=== PATIENT | male | born 1955 | race American Indian/Alaskan Native ===

== ENCOUNTER 2021-10-07 06:46 | Day surgery (SDC) | payer OTHER ==
[2021-10-06 11:16] LABS: Hematocrit 42.2 % (35.5-45.6); Hemoglobin 13.8 gm/dl (11.8-15.2); Mean Corpuscular HGB Conc 33 % (32-34); Mean Corpuscular Volume 85 fl (84-94); Platelet Count 183 K/mm3 (140-440); Red Blood Count 4.96 M/mm3 (3.65-5.03); Red Cell Distribution Width 14.4 % (13.2-15.2)
[2021-10-06 11:27] LABS: Alanine Aminotransferase 14 units/L (7-56); Albumin 4.1 g/dL (3.9-5); BUN/Creatinine Ratio 15; Blood Urea Nitrogen 15 mg/dL (9-20); Calcium 9.3 mg/dL (8.4-10.2); Hemolysis Index 2
[~2021-10-07 06:46] MED LIST: LACTATED RINGERS 1,000 ML IV SCH; MIDAZOLAM 2 MG/2 ML INJ IV NR
--- NOTE | 2021-10-07 07:25 | Anesthesia Consultation ---
Anesthesia Consult and Med Hx Date of service: 10/07/21 - Airway Anesthetic Teeth Evaluation: Poor (multiple missing teeth in the back, brokentooth upper left back) ROM Head & Neck: Adequate Mental/Hyoid Distance: Adequate Mallampati Class: Class II Intubation Access Assessment: Probably Good - Pre-Operative Health Status ASA Pre-Surgery Classification: ASA2 Proposed Anesthetic Plan: General - Pulmonary Hx Smoking: Yes (STOPPED 2012 , NOW ONLY VAPS) Hx Sleep Apnea: No (KIN PRE SCREEN LOW RISK) - Cardiovascular System Hx Hypertension: No Hx Coronary Artery Disease: No (elevated cholesterol, no meds) - Central Nervous System Hx Back Pain: Yes Hx Psychiatric Problems: Yes (PTSD/Depression) - Endocrine Hx Renal Disease: No (elevated PSA) - Hematic Hx Anemia: No - Other Systems Hx Alcohol Use: Yes (HX ABUSE- CLEAN X 32 YRS) Hx Substance Use: Yes (HX MULTIPLE DRUG ABUSE- CLEAN X 32 YRS) Hx Cancer: No
--- NOTE | 2021-10-07 07:25 | Anesthesia Day of Surgery ---
Anesthesia Day of Surgery - Day of Surgery Patient Examined: Yes Patient H&P Reviewed: Yes Patient is NPO: Yes
[2021-10-07] MEDS ORDERED: HYDROmorphone 0.5 MG/0.5 ML INJ IV PRN (07:30)
[2021-10-07] MEDS ORDERED: HYDROcodone/ACETAMINOPHEN 5-325 MG TAB PO PRN (07:30)
[2021-10-07] MEDS ORDERED: ceFAZolin/STERILE WATER 2 GM/20 ML SYRINGE IV NR (08:00)
[2021-10-07] MEDS ORDERED: GENTAMICIN/NS 80 MG/100 ML 100 ML IV SCH (08:00)
[2021-10-07] MEDS ORDERED: ceFAZolin/Water 2 GM/20 ML 2 GM/20 ML SYRINGE IV ONE (08:03)
[2021-10-07] MEDS ORDERED: GENTAMICIN/NS 80 MG/100 ML 100 ML IV ONE (08:12)
[2021-10-07] MEDS ORDERED: LIDOCAINE MPF (2%) 20 MG/1 ML VIAL 5 ML ONE (09:44)
[2021-10-07] MEDS ORDERED: propofoL 200 MG/20 ML VIAL IV ONE (09:44)
[2021-10-07] MEDS ORDERED: KETOROLAC 30 MG/1 ML INJ ONE (10:14)
[2021-10-07] MEDS ORDERED: ONDANSETRON 4 MG/2 ML INJ ONE (10:18)
[2021-10-07] MEDS ORDERED: ePHEDrine SULFATE 50 MG/1 ML INJ ONE (10:18)
[2021-10-07] MEDS ORDERED: dexAMETHasone 20 MG/5 ML VIAL ONE (10:18)
[2021-10-07] MEDS ORDERED: WATER FOR IRRIG STERILE 2000 ML IR ONE (10:25)
--- NOTE | 2021-10-07 10:40 | Short Stay Summary ---
Short Stay Documentation Date of service: 10/07/21 - History H&P: obtained from office - Allergies and Medications Current Medications: Allergies No Known Allergies Allergy (Verified 10/02/21 12:00) Home Medications Medication Instructions Recorded Confirmed Last Taken Type Ibuprofen [Motrin] 600 mg PO Q8H PRN 10/06/21 10/06/21 Unknown History Active Medications Hydrocodone Bitart/Acetaminophen (Hydrocodone/Acetaminophen 5-325 Mg Tab) 2 each PO ONCE PRN PRN Reason: Pain, Moderate (4-6) Stop: 10/07/21 17:00 Cefazolin Sodium (Cefazolin/Sterile Water 2 Gm/20 Ml Syringe) 2 gm IV PREOP NR Stop: 10/07/21 17:00 Hydromorphone HCl (Hydromorphone 0.5 Mg/0.5 Ml Inj) 0.5 mg IV Q10MIN PRN PRN Reason: Pain , Severe (7-10) Stop: 10/07/21 17:00 Lactated Ringer's (Lactated Ringers) 1,000 mls @ 100 mls/hr IV DIRECT TERESA Stop: 10/07/21 23:59 Last Admin: 10/07/21 09:50 Dose: 100 mls/hr Gentamicin Sulfate/Sodium Chloride (Gentamicin/Ns 80 Mg/100 Ml) 100 mls @ 200 mls/hr IV ONCE@0800 [facility]; Protocol Stop: 10/07/21 17:00 Midazolam HCl (Midazolam 2 Mg/2 Ml Inj) 2 mg IV PREOP NR Stop: 10/07/21 23:59 - Brief post op/procedure progress note Date of procedure: 10/07/21 Pre-op diagnosis: elevated psa --5, BPH Post-op diagnosis: same Procedure: CYSTO, PUS 50CC, PROSTATE BX Anesthesia: GETA Surgeon: JOSE GUADALUPE JUAREZ Estimated blood loss: minimal Pathology: list (PROSTATE CORES) Specimen disposition: to lab Condition: stable - Hospital course Hospital course: BACTRIM, NORCO, FLOMAX (PT HAS POST OP INFO) - Disposition Condition at discharge: Stable Disposition: 01 HOME / SELF CARE / HOMELESS Short Stay Discharge Plan Follow up with: [facility] [Primary Care Provider] - 7 Days
--- NOTE | 2021-10-07 11:47 | Operative Report ---
DATE OF SURGERY: 10/07/2021 PREOPERATIVE DIAGNOSES: Elevated PSA of 5, benign prostatic hypertrophy. POSTOPERATIVE DIAGNOSES: Elevated PSA of 5, benign prostatic hypertrophy. PROCEDURES: Cystoscopy, transrectal ultrasound and biopsy of prostate. SURGEON: Bud Solitario MD ANESTHESIA: General. ESTIMATED BLOOD LOSS: Minimal. FLUIDS: Crystalloid. COMPLICATIONS: No complications. INDICATIONS: This patient is a 66-year-old gentleman, seen by Dr. Lindsey in our [place] office. He has a PSA of 5, Prostate Symptom Score of 26. He presents for cystoscopy and prostate biopsy. At the patient's request, he wanted it done under general anesthesia. Risks, benefits, complications were explained. Questions answered. The patient agreed to proceed with surgical intervention. DESCRIPTION OF PROCEDURE: The patient was taken to the operative suite, placed in a supine position. After adequate general anesthesia, placed in the dorsal lithotomy position, prepped and draped in a sterile fashion. Normal external genitalia. The patient was circumcised. Testes in normal position. Pancystourethroscopy was performed with a 22-[place] Storz cystoscope, no urethral abnormalities. The patient did display some moderate trilobar obstruction. Bladder, no tumors or stones were noted. He had some mild diffuse trabeculation. Both ureteral orifices in normal position. Fluoroscopy machine was not working and therefore retrograde pyelograms were not obtained. Transrectal ultrasound was performed. Bipolar imaging revealed a 51 gram gland. No obvious lesions could be appreciated. A 12-core template biopsy was obtained, 4 cores at the base, the mid and the apex on the left and right side. The patient tolerated the procedure well. Rectal exam revealed BPH, but no lesions. He was extubated and taken to recovery room. He will go home on Bactrim, [place] and we will start Flomax. TID: [id number] RECEIPT: [id number] BETZAIDA/DENISHA
--- NOTE | 2021-10-07 11:56 | Ultrasound Report ---
Ultrasound Transrectal INDICATION / CLINICAL INFORMATION: ELEVATED PSA TECHNIQUE: Intraoperative sonographic images were obtained during the procedure. FINDINGS: Intraoperative sonographic images for Dr. Solitario. See operative/procedure note by performing physician for full details. Ultrasound Images: 5. Prostate measures 4.7 x 3.9 x 5.5 cm, corresponding to an estimated volume of 5 2.8 mL. Signer Name: Latrell Esteban MD Signed: 10/07/2021 11:52 AM Workstation Name: [id number]
--- NOTE | 2021-10-07 11:59 | Post Anesthesia Evaluation ---
- Post Anesthesia Evaluation Patient Participated: Yes Airway Patent: Yes Stable Respiratory Function: Yes Nausea/Vomiting: No Temp > 96.8F: Yes Pain Manageable: Yes Adequeate Hydration: Yes Anesthesia Complications: No
[2021-10-07 12:26] VITALS: BP 112/78
== END 2021-10-07 12:10 | disposition home or self-care (01) ==
LOC: OR 06:46
PROVIDERS: ATTEND Urology
DX: N40.0 Benign prostatic hyperplasia without lower urinary tract symptoms (principal); R97.20 Elevated prostate specific antigen [PSA]; H40.9 Unspecified glaucoma; M19.90 Unspecified osteoarthritis, unspecified site; F32.9 Major depressive disorder, single episode, unspecified; F41.9 Anxiety disorder, unspecified; Z72.89 Other problems related to lifestyle; Z87.891 Personal history of nicotine dependence; Z79.899 Other long term (current) drug therapy; Z98.890 Other specified postprocedural states
CPT/HCPCS: 36415; 52000; 55700; 76872; 80053; 85027; 88305; J0690; J1100; J1580; J1885; J2405; J2704; J3490; J7120; U0003